=== PATIENT | female | born 1995 | race Caucasian/White ===

== ENCOUNTER 2016-07-13 13:05 | Emergency (ER) | payer MEDICAID ==
[~2016-07-13] VITALS: Ht 162.6 cm; Wt 74.0 kg
[~2016-07-13 13:05] MED LIST: AMOXICILLIN500 MG PO; AMOXIL500 MG OR; BACTRIM DS1 TAB PO; BIRTH CONTROL; CLINDAMYCIN11 EX; IBUPROFEN600 MG PO; IRON325 M1 PO; KEFLEX500 MG OR; NO MEDS; PRENATA8 PO; SEPTRA DS1 TAB PO; TRAMADOL HCL50 MG OR; TRINESSA OR; ULTRAM50 M1 PO; ZOFRAN ODT4 MG PO; no home meds
[2016-07-13 13:44] LABS: URINE BILIRUBIN - DIPSTICK NEGATIVE (NEGATIVE); URINE BLOOD DIPSTICK LARGE (NEGATIVE); URINE COLOR YELLOW; URINE GLUCOSE - DIPSTICK NEGATIVE (NEGATIVE); URINE KETONE NEGATIVE (NEGATIVE); URINE LEUK ESTERASE NEGATIVE (NEGATIVE); URINE NITRITE - DIPSTICK NEGATIVE (Negative); URINE PH 5.5 (4.5-8.0); URINE PROTEIN - DIPSTICK NEGATIVE (NEG-TRACE); URINE SPECIFIC GRAVITY 1.015; URINE UROBILINOGEN - DIPSTICK 0.2 E.U./dL (0.2)
[2016-07-13 13:46] LABS: HEMATOCRIT 41.8 % (37.0-47.0); HEMOGLOBIN 13.5 g/dl (12.0-16.0); IMMATURE GRANULOCYTES 0.3 % (0.0-1.0); MEAN CELL VOLUME 88.6 fL CALC (80.0-100.0); MEAN CORPUSCULAR HGB 28.6 pG CALC (26.0-32.0); MEAN CORPUSCULAR HGB CONC 32.3 g/L CALC (32.0-36.0); NEUT# 4.24 thou/uL (2.00-7.15); RED BLOOD COUNT 4.72 mill/uL (4.20-5.60); RED CELL DISTRI WIDTH 12.5 % (11.5-15.5)
[2016-07-13 13:50] LABS: URINE CLARITY HAZY
[2016-07-13 13:51] LABS: URINE EPITHELIAL CELLS FEW EPI/hpf (0-FEW); URINE RBC 50-100 RBC/hpf (0-5)
[2016-07-13 14:00] LABS: ALBUMIN 4.6 g/dL (3.2-5.0); ALKALINE PHOSPHATASE 74 u/l (38-126); ANION GAP 16 (6-22 (CALC)); BILIRUBIN, TOTAL 0.3 mg/dL (0.0-1.4); BUN 7 mg/dL (7-17); BUN/CREATININE RATIO 13 (12-20 (CALC)); CALCIUM 9.4 mg/dL (8.4-10.2); CARBON DIOXIDE 26 mmol/l (22-30); CHLORIDE 104 mmol/l (95-108); CREATININE 0.6 mg/dL (0.5-1.0); GFR > 60 ML/MIN (>=60 (CALC)); GFR FOR AFR.AMER. > 60 ML/MIN (>=60 (CALC)); GLUCOSE 106 mg/dL (65-105); POTASSIUM 4.2 mmol/l (3.5-5.1); SGOT/AST 16 u/l (14-36); SGPT/ALT 22 u/l (9-52); SODIUM 142 mmol/l (137-146)
[2016-07-13 14:16] LABS: BETA-HCG, QUANT(RESULT NUMBER) 58 mIU/mL
[2016-07-13 15:03] VITALS: BP 116/73
== END 2016-07-13 15:03 | disposition home or self-care (01) | DRG 778 ==
LOC: ED 13:05
PROVIDERS: Emergency Medicine
DX: O20.0 Threatened abortion (principal); Z3A.01 Less than 8 weeks gestation of pregnancy

== ENCOUNTER 2016-07-15 21:13 | Emergency (ER) | payer MEDICAID ==
[~2016-07-15] VITALS: Ht 162.6 cm; Wt 61.0 kg
[2016-07-15 23:25] VITALS: BP 130/85
== END 2016-07-15 23:25 | disposition home or self-care (01) | DRG 778 ==
LOC: ED 21:13
DX: O20.0 Threatened abortion (principal)

== ENCOUNTER 2017-03-14 10:56 | Emergency (ER) | payer SELFPAY ==
[~2017-03-14] VITALS: Ht 162.6 cm; Wt 69.6 kg
[2017-03-14] MEDS ORDERED: CLINDAMYCIN300 M1 PO (11:49)
[2017-03-14 11:58] VITALS: BP 107/77
== END 2017-03-14 11:57 | disposition home or self-care (01) | DRG 159 ==
LOC: ED 10:56
DX: K08.89 Other specified disorders of teeth and supporting structures (principal)

== ENCOUNTER 2017-10-11 08:59 | Emergency (ER) | payer SELFPAY ==
[~2017-10-11] VITALS: Ht 162.6 cm; Wt 70.9 kg
[~2017-10-11 08:59] MED LIST changes: +CLINDAMYCIN300 M1 PO
[2017-10-11] MEDS ORDERED: AMOXICILLIN500 M2 PO (09:32)
[2017-10-11 09:38] VITALS: BP 114/73
== END 2017-10-11 09:55 | disposition home or self-care (01) | DRG 153 ==
LOC: ED 08:59
DX: J02.0 Streptococcal pharyngitis (principal); R50.9 Fever, unspecified; R05 Cough

== ENCOUNTER 2018-11-22 18:52 | Emergency (ER) | payer OTHER ==
[~2018-11-22] VITALS: Ht 162.6 cm; Wt 82.0 kg
[~2018-11-22 18:52] MED LIST changes: +AMOXICILLIN500 M2 PO
[2018-11-22] MEDS ORDERED: ZITHROMAX Z-PA250 MG PO (19:17)
[2018-11-22] MEDS ORDERED: TESSALON PER100 MG PO (19:18)
[2018-11-22] MEDS ORDERED: MEDDOSEPAK PO (19:32)
[2018-11-22] MEDS ORDERED: ZOFRAN4 M1 PO (20:45)
[2018-11-22 20:55] VITALS: BP 136/70
== END 2018-11-22 20:55 | disposition home or self-care (01) | DRG 918 ==
LOC: ED 18:52
DX: T36.3X5A Adverse effect of macrolides, initial encounter (principal); T38.0X5A Adverse effect of glucocorticoids and synthetic analogues, initial encounter; T48.3X5A Adverse effect of antitussives, initial encounter; R51 Headache; R11.2 Nausea with vomiting, unspecified; H53.2 Diplopia; L53.8 Other specified erythematous conditions; Y92.009 Unspecified place in unspecified non-institutional (private) residence as the place of occurrence of the external cause

== ENCOUNTER 2020-02-07 12:08 | Emergency (ER) | payer OTHER ==
[~2020-02-07] VITALS: Ht 162.6 cm; Wt 180.0 kg
[~2020-02-07 12:08] MED LIST changes: +MEDDOSEPAK PO; +TESSALON PER100 MG PO; +ZITHROMAX Z-PA250 MG PO; +ZOFRAN4 M1 PO
[2020-02-07 14:15] LABS: HEMATOCRIT 45.4 % (37.0-47.0); HEMOGLOBIN 14.3 g/dl (12.0-16.0); IMMATURE GRANULOCYTES 0.4 % (0.0-5.0); MEAN CELL VOLUME 89.4 fL CALC (80.0-100.0); MEAN CORPUSCULAR HGB 28.1 pG CALC (26.0-32.0); MEAN CORPUSCULAR HGB CONC 31.5 g/dL CAL (32.0-36.0); NEUT# 7.7 thou/uL (2.00-7.15); RED BLOOD COUNT 5.08 mill/uL (4.20-5.60); RED CELL DISTRI WIDTH 12.4 % (11.5-15.5)
[2020-02-07 14:28] LABS: ALBUMIN 4.7 g/dL (3.2-5.0); ALKALINE PHOSPHATASE 85 u/l (38-126); ANION GAP 14 (6-22 (CALC)); BILIRUBIN, TOTAL 0.3 mg/dL (0.0-1.4); BUN 6 mg/dL (7-17); BUN/CREATININE RATIO 9 (12-20 (CALC)); CARBON DIOXIDE 28 mmol/l (22-30); CHLORIDE 104 mmol/l (95-108); CREATININE 0.6 mg/dL (0.5-1.0); GFR > 60 ML/MIN (>=60 (CALC)); GFR FOR AFR.AMER. > 60 ML/MIN (>=60 (CALC)); LIPASE 172 u/l (23-300); SGOT/AST 21 u/l (14-36); SODIUM 140 mmol/l (137-146); TOTAL PROTEIN 7.5 g/dL (6.3-8.2)
[2020-02-07 16:36] LABS: URINE BILIRUBIN - DIPSTICK NEGATIVE (NEGATIVE); URINE BLOOD DIPSTICK NEGATIVE (NEGATIVE); URINE COLOR YELLOW; URINE GLUCOSE - DIPSTICK NEGATIVE (NEGATIVE); URINE KETONE NEGATIVE (NEGATIVE); URINE LEUK ESTERASE NEGATIVE (NEGATIVE); URINE NITRITE - DIPSTICK NEGATIVE (Negative); URINE PROTEIN - DIPSTICK NEGATIVE (NEG-TRACE); URINE SPECIFIC GRAVITY <=1.005; URINE UROBILINOGEN - DIPSTICK 0.2 E.U./dL (0.2)
[2020-02-07 17:00] VITALS: BP 114/89
== END 2020-02-07 17:00 | disposition home or self-care (01) | DRG 392 ==
LOC: ED 12:08
PROVIDERS: Family Medicine
DX: R10.31 Right lower quadrant pain (principal)
CPT/HCPCS: Q9967

== ENCOUNTER 2022-10-10 18:09 | Emergency (ER) | payer OTHER ==
[2022-10-10] VITALS (9 sets, daily range): BP systolic 94–145; BP diastolic 61–82
[~2022-10-10] VITALS: Ht 162.6 cm; Wt 86.6 kg
[2022-10-10] MEDS ORDERED: TRAMADOL HCL50 MG PO (20:12)
[2022-10-10] MEDS ORDERED: MOTRIN800 MG PO (20:12)
== END 2022-10-10 20:25 | disposition home or self-care (01) | DRG 563 ==
LOC: ED 18:09
DX: S52.501A Unspecified fracture of the lower end of right radius, initial encounter for closed fracture (principal); S53.402A Unspecified sprain of left elbow, initial encounter; S63.502A Unspecified sprain of left wrist, initial encounter; S80.211A Abrasion, right knee, initial encounter; S80.01XA Contusion of right knee, initial encounter; W01.0XXA Fall on same level from slipping, tripping and stumbling without subsequent striking against object, initial encounter; Y92.008 Other place in unspecified non-institutional (private) residence as the place of occurrence of the external cause